=== PATIENT | male | born 1980 | race Caucasian/White ===

== ENCOUNTER 2018-05-28 11:47 | Observation (INO) ==
[2018-05-28] MEDS ORDERED: ASPIRIN PO ONE (11:56)
--- NOTE | 2018-05-28 12:23 | Diag Imaging Result Doc PS360 ---
EXAM: CHEST-2 VIEWS HISTORY: cp TECHNIQUE: Chest two views COMPARISON: 10/22/2016 FINDINGS: Poor inspiratory effort. The heart is not enlarged. The vessels are not distended. There are no infiltrates. No pleural effusions. IMPRESSION: No acute abnormality. Electronically signed by Danny Fontenot 05/28/2018 12:21 PM
[2018-05-28 12:24] LABS: BASO# 0.03 X1000 (0.0-0.2); BASO% 0.5 % (0.0-0.8); EOS# 0.33 X1000 (0.0-0.7); EOS% 5.5 % (0.0-10.0); HEMATOCRIT 44.7 % (42.0-52.0); HEMOGLOBIN 14.9 g/dL (14.0-18.0); IMM GRAN# 0.01 X1000 (0.0-0.04); IMM GRAN% 0.2 % (0.0-0.5); LYMPH# 1.49 X1000 (1.2-3.4); LYMPH% 24.6 % (20.5-51.1); MCH 29.1 PG (27-31); MCHC 33.3 g/dL (33-37); MCV 87.3 FL (81-99); MONO# 0.41 X1000 (0.11-0.59); MONO% 6.8 % (1.7-9.3); MPV 10.6 FL (7.4-10.4); NEUT# 3.78 X1000 (1.4-6.5); NEUT% 62.4 % (42.2-75.2); PLT 233 X1000 (130-400); RBC 5.12 XMIL (4.7-6.1); RDW 12.8 % (11.5-14.5); WBC 6.05 X1000 (4.8-10.8)
[2018-05-28] MEDS ORDERED: PROTONIX IV ONE (12:41)
[2018-05-28] MEDS ORDERED: SODIUM CHLORIDE 0.9% INJ ONE (12:41)
[2018-05-28] MEDS ORDERED: G.I. COCKTAIL PO ONE (12:42)
--- NOTE | 2018-05-28 12:53 | EKG Report ---
Test Performed on : 05/28/2018 12:07:53 PM Test Reason : cp Blood Pressure : / mmHG Vent. Rate : 096 BPM Atrial Rate : 096 BPM P-R Int : 138 ms QRS Dur : 086 ms QT Int : 354 ms P-R-T Axes : 038 038 032 degrees QTc Int : 447 ms Normal sinus rhythm. with sinus arrhythmia. Cannot rule out Anterior infarct , age undetermined Abnormal ECG When compared with ECG of 22-OCT-2016 16:35, Nonspecific T wave abnormality now evident in Inferior leads Unconfirmed Result
[2018-05-28 12:55] LABS: AGAP 10; ALKALINE PHOSPHATASE 61 U/L (32-122); BUN 14 mg/dL (8-22); CALCIUM 9.2 mg/dL (8.8-10.2); CHLORIDE 101 mmol/L (98-107); CK PROFILE 149 U/L (24-204); COSMO 278; ESTIMATED GFR > 60; GLUCOSE 139 mg/dL (70-104); GOT 17 U/L (10-34); GPT 26 U/L (10-44); POTASSIUM 4.1 mmol/L (3.5-5.1); SODIUM 138 mmol/L (136-145); TCO2 27 mmol/L (25-35); TOTAL PROTEIN 6.7 g/dL (6.3-8.3)
[2018-05-28 12:59] LABS: INR 0.88; PROTIME 12.4 Seconds (11.0-16.0)
--- NOTE | 2018-05-28 13:06 | PROVIDER DOCUMENTATION ---
This chart was entered by Toby Irwin Scribe, acting as scribe for Barb Kc CRNP. HPI-Chest Pain - General Chief Complaint: Chest Pain Stated Complaint: CHEST PAIN Time Seen by Provider: 05/28/18 12:19 Source: patient Allergies/Adverse Reactions: Patient Allergies Allergy/AdvReac Type Severity Reaction Status Date / Time No Known Allergies Allergy Verified 09/20/15 17:07 Home Medications: Home Medication List Medication Instructions Recorded Confirmed Last Taken Type Paroxetine HCl [Paxil] 20 mg PO DAILY 09/20/15 09/20/15 10/22/16 History - History of Present Illness-CP Nature of Presenting Problem: 37 yom with family hx of DC (brother and father) presents to ed with cc of sudden onset intermitentant chest pressure and stabbing pain the past 2-3 days. Last episode started this am at 0930 has been constant pressure mid sternal with sudden fatigue. Reports same thing happened 1 year ago and was told had acute angina and to follow up with Entrance Guard but never did. Takes yefri aspirin 81 mg daily for 1 week now. Reports some times the pain goes from sternum to back and stabbing. Location: reports: substernal Quality of Pain: reports: pressure Severity in ED: moderate Onset/Duration: this morning Timing: still present Review of Systems - Adult - REVIEW OF SYSTEMS - ADULT Constitutional: reports: fatique. denies: chills, fever Eyes: reports: no symptoms reported Ears, Nose, Mouth & Throat: reports: no symptoms reported Cardiovascular: reports: chest pain. denies: irregular heart rate, orthopnea, syncope Respiratory: denies: cough, shortness of breath, wheezing Gastrointestinal: denies: abdominal pain, nausea, vomiting Genitourinary: denies: dysuria, frequent UTI's, urgency Musculoskeletal: reports: no symptoms reported Integumentary: reports: no symptoms reported Neurological: reports: no symptoms reported Psychiatric: reports: no symptoms reported Endocrine: reports: no symptoms reported Hematologic/Lymphatic: reports: no symptoms reported Allergic/Immunologic: reports: no symptoms reported All Other Systems: Reviewed and Negative Past History - Adult - PAST MEDICAL HISTORY-ADULT Review of Records: reports: Nursing Assessment Review, Medications Reviewed Major Childhood Illnesses: reports: denies history Cardiovascular: reports: denies history Musculoskeletal: reports: other (gout) Psychiatric: reports: anxiety - IMMUNIZATION STATUS Childhood Immunizations: See Nurse Assessment Flu Vaccine: See Nurse Assessment - FAMILY HISTORY Family History: CAD under 55yo (brother, brother is a smoker) Physical Exam-General - PHYSICAL EXAM-ADULT Initial Vital Signs Reviewed: Yes - CONSTITUTIONAL General Appearance: appears well, alert, no apparent distress - EYES Eyes: PERRL/EOMI, pink conjunctivae - HEAD, EARS, NOSE, MOUTH & THROAT HENMT: normocephalic/atraumatic, moist mucous membranes, normal ENT inspection - NECK Neck: non-tender, full range of motion, supple, normal inspection - RESPIRATORY Respiratory: chest non-tender, lungs clear, normal breath sounds - CARDIOVASCULAR Cardiovascular: normal peripheral pulses, regular rate, rhythm, no edema, no gallop, no JVD, no murmur - GASTROINTESTINAL (ABDOMEN) Abdominal Exam: normal bowel sounds, non tender, soft, no organomegaly, no pulsatile mass - LYMPHATIC Lymphatic: no adenopathy - MUSCULOSKELETAL Back Exam: normal inspection, no CVA tenderness, no vertebral tenderness Extremity: normal range of motion, non-tender, normal gait, normal inspection - SKIN Integumentary: normal color, normal turgor, warm/dry - NEUROLOGIC Neurologic: car starter II-XII nml as tested, grossly normal, no motor/sensory deficits - PSYCHIATRIC Psych/Mental Status: normal mood/affect, normal thought content, normal thought process, oriented x 3 Progress - PLAN OF CARE/RESULTS Progress/Plan/Lab Results: Vital Signs - 8 hr 05/28/18 11:51 Temperature 98.9 F Pulse Rate 97 H Respiratory Rate 18 Blood Pressure 142/98 O2 Sat by Pulse Oximetry 98 Laboratory Results - last 24 hr 05/28/18 05/28/18 05/28/18 12:13 12:13 12:13 WBC 6.05 RBC 5.12 Hgb 14.9 Hct 44.7 MCV 87.3 MCH 29.1 MCHC 33.3 RDW Std Deviation 12.8 Plt Count 233 MPV 10.6 H Immature Gran % (Auto) 0.2 Neut % (Auto) 62.4 Lymph % (Auto) 24.6 Routt % (Auto) 6.8 Eos % (Auto) 5.5 Baso % (Auto) 0.5 Immature Gran # (Auto) 0.01 Neut # (Auto) 3.78 Lymph # (Auto) 1.49 Routt # (Auto) 0.41 Eos # (Auto) 0.33 Baso # (Auto) 0.03 PT INR PTT (Actin FS) Sodium 138 Potassium 4.1 Chloride 101 Carbon Dioxide 27 Anion Gap 10 BUN 14 Creatinine 1.0 Estimated GFR/1.73 m2 > 60 BUN/Creatinine Ratio 14 Glucose 139 H Calculated Osmolality 278 Calcium 9.2 Total Bilirubin 0.20 AST 17 ALT 26 Alkaline Phosphatase 61 Creatine Kinase 149 Troponin T Loi-N-Wghmzgeqyvt Pept 24 Total Protein 6.7 Albumin 4.0 Globulin 3.0 Albumin/Globulin Ratio 1.0 05/28/18 05/28/18 05/28/18 12:13 12:13 14:28 WBC RBC Hgb Hct MCV MCH MCHC RDW Std Deviation Plt Count MPV Immature Gran % (Auto) Neut % (Auto) Lymph % (Auto) Routt % (Auto) Eos % (Auto) Baso % (Auto) Immature Gran # (Auto) Neut # (Auto) Lymph # (Auto) Routt # (Auto) Eos # (Auto) Baso # (Auto) PT 12.4 INR 0.88 PTT (Actin FS) 25.0 Sodium Potassium Chloride Carbon Dioxide Anion Gap BUN Creatinine Estimated GFR/1.73 m2 BUN/Creatinine Ratio Glucose Calculated Osmolality Calcium Total Bilirubin AST ALT Alkaline Phosphatase Creatine Kinase 165 Troponin T < 0.010 Ulm-U-Ojguyfckoyx Pept Total Protein Albumin Globulin Albumin/Globulin Ratio 05/28/18 14:28 WBC RBC Hgb Hct MCV MCH MCHC RDW Std Deviation Plt Count MPV Immature Gran % (Auto) Neut % (Auto) Lymph % (Auto) Routt % (Auto) Eos % (Auto) Baso % (Auto) Immature Gran # (Auto) Neut # (Auto) Lymph # (Auto) Routt # (Auto) Eos # (Auto) Baso # (Auto) PT INR PTT (Actin FS) Sodium Potassium Chloride Carbon Dioxide Anion Gap BUN Creatinine Estimated GFR/1.73 m2 BUN/Creatinine Ratio Glucose Calculated Osmolality Calcium Total Bilirubin AST ALT Alkaline Phosphatase Creatine Kinase Troponin T < 0.010 Utf-S-Cahqvzsfoib Pept Total Protein Albumin Globulin Albumin/Globulin Ratio Orders Category Date Time Status Cardiac Monitoring DIRECTED Care 05/28/18 11:56 Active Oxygen Therapy- ED Nursing DIRECTED Care 05/28/18 11:56 Active CHEST-2 VIEWS [RAD] Stat Exams 05/28/18 11:56 Completed CBC WITH ELECTRONIC DIFF [HEME] Stat Lab 05/28/18 12:13 Completed CK PROFILE [SP CHEM] Stat Lab 05/28/18 12:13 Completed CK PROFILE [SP CHEM] Stat Lab 05/28/18 14:28 Completed COMPREHENSIVE METABOLIC PANEL [CHEM] Stat Lab 05/28/18 12:13 Completed PRO B-NATRIURETIC PEPTIDE Stat Lab 05/28/18 12:13 Completed PROTIME WITH INR [COAG] Stat Lab 05/28/18 12:13 Completed PTT [COAG] Stat Lab 05/28/18 12:13 Completed TROPONIN T Stat Lab 05/28/18 12:13 Completed TROPONIN T Stat Lab 05/28/18 14:28 Completed Aspirin Med 05/28/18 11:56 Discontinued 325 mg PO NOW ONE Lido/Hong Alk/Al&mg Hydrox [G.i. Cocktail] Med 05/28/18 12:42 Discontinued 30 ml PO NOW ONE Nitroglycerin Med 05/28/18 13:17 Discontinued 0.5 inch TOP NOW ONE Pantoprazole [Protonix] Med 05/28/18 12:41 Discontinued 40 mg IV NOW ONE Sodium Chloride 0.9% Med 05/28/18 12:41 Discontinued 10 ml INJ NOW ONE CP/SOB/Palp >45 yrs of Age Stat Oth 05/28/18 11:56 Ordered EKG [EKG] Stat Ther 05/28/18 11:56 Draft EKG [EKG] Stat Ther 05/28/18 14:10 Ordered Heart Score 1 Discussed results and plan of care with patient. Patient agrees with plan and verbalizes understanding. Result Diagrams: 05/28/18 12:13 05/28/18 12:13 - EKG 1 Time of EKG reading by physician:: 12:07 EKG Read and Signed by:: Latanya Crump EKG Interpretation (*Must complete 3 of following elements*): Abnormal (cannot rule out anterior infarct age undetermined) Rate: 96 Rhythm: nsr with sinus arrythmia Chapman: normal QRS: normal Prior EKG Comparison: unchanged from prior 2 Time of EKG reading by physician:: 14:17 EKG Read and Signed by:: Latanya Crump EKG Interpretation (*Must complete 3 of following elements*): Abnormal (cannot rule out anterior infarct age undetermined) Rate: 80 Rhythm: nsr Chapman: normal QRS: normal VA Interval: normal Prior EKG Comparison: unchanged from prior - XRAY 1 XRAY: Bilateral XRAY Study: Chest Impression: Normal ( IMPRESSION: No acute abnormality. Electronically signed by Danny Fontenot 05/28/2018 12:21 PM) - CONSULTS/PCP/HOSPITALIST Notification #1 *Consult/PCP/Hospitalist*: Dr. Miller Time Discussed: 15:12 Reason/Comments: Admit Consult Disposition: Admit Departure - Departure Date of Disposition Decision: 05/28/18 Time of Disposition Decision: 15:12 DIAGNOSIS: Chest pain Qualifiers: Chest pain type: unspecified Qualified Code(s): R07.9 - Chest pain, unspecified Disposition: ADMITTED INPATIENT 09 Certified Medical Emergency: Emergent Condition: Stable Referrals and Follow-Ups: Evaristo Dorantes MD [Primary Care Provider] - - Critical Care Note This patient required my direct & personal management of CC.: No Attestation - Physician/ GHAZALA Attestation Patient care was provided by Advanced Practice Provider:: Yes Advanced Practice Provider:: Barb Kc Advanced Practice Provider documentation review:: The Mid-level provider documentation, treatment plan and medical decision making was reviewed by the physician who agrees with all treatment and medical decision making by the P. The physician spent face to face time with patient:: No Advanced Practice Provider documentation review:: Supervising physician onsite and consulted in the evaluation and care of this patient. The physician did not have a face to face encounter with the patient. This chart was documented by the indicated scribe, (Toby Irwin Scribe) and accurately reflects the services I performed and decisions made by me, Barb Kc CRNP, as attested by the provider's signature.
[2018-05-28] MEDS ORDERED: NITROGLYCERIN TOP ONE (13:17)
[2018-05-28] MEDS ORDERED: NS 1,000 ML IV ONE (15:13)
[2018-05-28] MEDS ORDERED: TYLENOL PO PRN (18:36)
--- NOTE | 2018-05-29 03:28 | HISTORY AND PHYSICAL ---
CHIEF COMPLAINT: Chest pain. HISTORY OF PRESENT ILLNESS: The patient is a 37-year-old male who presented to the emergency department with chest pain. States he has a pressure in his chest. Sometimes feels as though he has to burp or cough. Denies any radiation of the pain. Denies any shortness of breath, nausea, or diaphoresis. He does note that he had similar pain approximately 3 months ago. He was told at that time to follow up with cardiology but never did. States he has been having pain for approximately a week and has been taking aspirin since then. Stated the pain worsened. Therefore, he came to the ER. ALLERGIES: No known drug allergies. MEDICATIONS: Paxil 20 mg daily. FAMILY HISTORY: Positive for brother having WA at 40. Father of an WA. SOCIAL HISTORY: Patient is . He is employed. Denies smoking. REVIEW OF SYSTEMS: The patient denies fevers, chills, cough, congestion. Denies any palpitations. Denies orthopnea, syncope, or pedal edema. He denies shortness of breath or wheezing. Denies nausea, vomiting, abdominal pain, diaphoresis. Denies diarrhea or constipation. MEDICAL HISTORY: Positive for gout and anxiety. PHYSICAL EXAMINATION: VITAL SIGNS: Reviewed. GENERAL: He is awake, alert. He is in no respiratory distress. HEENT: Normocephalic, atraumatic. ANDIE. NECK: Supple. CARDIOVASCULAR: Regular rate. No murmurs. CHEST: Clear and nonlabored. ABDOMEN: Soft, nondistended, nondistended. EXTREMITIES: Moves all extremities. NEUROLOGIC: No focal changes. LABS: First 2 sets of cardiac enzymes were negative. ASSESSMENT: 1. Chest pain. 2. Chronic anxiety. 3. Gout. PLAN: We will admit the patient to the hospital. Treat him in the usual fashion. Place on rule out protocol. We will attempt to schedule a stress test in the a.m. cc: Arnulfo Miller MD
--- NOTE | 2018-05-29 09:08 | EKG Report ---
Test Performed on : 05/29/2018 08:14:10 AM Test Reason : CP Blood Pressure : / mmHG Vent. Rate : 064 BPM Atrial Rate : 064 BPM P-R Int : 152 ms QRS Dur : 080 ms QT Int : 376 ms P-R-T Axes : 036 027 043 degrees QTc Int : 387 ms Normal sinus rhythm. Normal ECG When compared with ECG of 28-MAY-2018 14:17, (Unconfirmed) No significant change was found Unconfirmed Result
[2018-05-29 11:37] VITALS: BP 137/74
--- NOTE | 2018-05-29 14:24 | Diag Imaging Result Document ---
PROCEDURE NAME: MYOCARDIAL PERF SCAN, STR/REST - 05/29/2018 SUMMARY: The patient was administered 15.9 mCi of technetium 99-m sestamibi, after which resting cardiac images were obtained. The patient was subsequently exercised on a treadmill according to Morgan protocol and exercised for a total of 8 minutes 21 seconds achieving a maximum workload of stage 3. With exercise, the heart increased from 93 beats per minute to 160 beats per minute representing 86% of maximal age-predicted heart rate. The blood pressure increased from 147/87 to 164/90. With exercise, the patient denied chest discomfort. At peak exercise, the patient was administered 44.6 mCi of technetium-99m sestamibi, after which gated stress cardiac images were obtained. Baseline ECG demonstrated sinus rhythm and nonspecific T-wave abnormality. With exercise, there were no diagnostic ST-segment changes. SPECT images were reconstructed in the short, horizontal, and vertical long axis. Review of these images demonstrated no scintigraphic evidence of inducible myocardial ischemia or prior infarct. Gated images demonstrate a calculated left ventricular ejection fraction of 79% with symmetrical wall motion/thickening. CONCLUSIONS: 1. Fair aerobic capacity for age. Target heart rate achieved. 2. Clinically negative for chest pain. 3. Electrocardiographically negative for exercise-induced myocardial ischemia. 4. Exercise sestamibi images demonstrate no scintigraphic evidence of inducible myocardial ischemia. Normal left ventricular systolic function demonstrated. cc: MD Cora Oscar CRNP
--- NOTE | 2018-05-30 00:32 | DISCHARGE SUMMARY ---
ADMISSION DATE: 05/28/2018 DISCHARGE DATE: 05/29/2018 DISCHARGE DIAGNOSES: 1. Chest pain resolved . 2. Chronic anxiety. 3. Gout. CONSULTATIONS: None. PROCEDURES: Stress test which was negative. BRIEF HOSPITAL COURSE: The patient is 37-year-old male who presented to the hospital with chest pain. Has a very strong family history of coronary artery disease. Thankfully his stress test was negative. Therefore patient will be discharged home. DISPOSITION: Patient will be discharged home, is negative stress test. Most likely this is GI related, will continue to follow with his primary care, may require EGD as an outpatient. Greater than 30 minutes was spent in total care. cc: Arnulfo Miller MD
== END 2018-05-29 17:00 | disposition home or self-care (01) ==
LOC: P.ED 11:47 → INTOOBSV 11:48 → P.MEDSURG 11:48
PROVIDERS: ATTEND Family Medicine
CPT/HCPCS: 71020; 71046; 78452; 80053; 82550; 82948; 83880; 84484; 85025; 85610; 85730; 93005; 93017; 94761; 96361; 96374; 99285; A9270; A9500; C9113; J7030; S0164; XXXXX